=== PATIENT | female | born 1965 | race Caucasian/White ===

== ENCOUNTER 2016-03-26 09:33 | Outpatient (CLI) | payer OTHER | END 2016-03-26 09:34 | disposition home or self-care (01) | LOC: NAVSJIPCSP 09:33 | PROVIDERS: ATTEND Internal Medicine | DX: J30.9 Allergic rhinitis, unspecified (principal); E78.5 Hyperlipidemia, unspecified | CPT/HCPCS: 36415; 80061 ==

== ENCOUNTER 2016-07-15 13:19 | Outpatient (CLI) | payer OTHER ==
[2016-07-15 13:54] LABS: #Eosinphils 0.1 thou/uL (0.0-0.7); #Monocytes 0.4 thou/uL (0.11-0.59); #Neutrophils 1.7 thou/uL (1.40-6.50); %Basophils 1.1 % (0.0-1.0); %Lymphocytes 31.4 % (21.0-51.0); %Monocytes 11.7 % (0.0-10.0); %Neutrophils 51.9 % (42.0-75.0); Hemoglobin 12.3 g/dL (12.0-16.0); Mean Corpuscular HGB CONC 33.5 g/dL (32.0-36.0); Mean Corpuscular Hemoglobin 33.6 pg (27.0-31.0); Mean Platelet Volume 8.9 fL (7.4-10.4); Platelet Count 178 thou/uL (130-400); RBC Distribution Width 12.1 % (11.5-14.5); Red Blood Cell (RBC) Count 3.68 mill/uL (4.20-5.40); White Blood Cell (WBC) Count 3.3 thou/uL (4.8-10.8)
[2016-07-15 14:01] LABS: ALT (SGPT) 20 U/L (0-55); AST (SGOT) 23 U/L (5-34); Albumin 4.1 g/dL (3.5-5.0); Alkaline Phosphatase 57 U/L (40-150); Bilirubin, Direct 0.2 mg/dL (0.1-0.3); Bilirubin, Total 0.4 mg/dL (0.2-1.2); Cholesterol 222 mg/dL (< 200 Desired); HDL Cholesterol 55 mg/dL (>60 Neg Risk); LDL Cholesterol, Calculated 146 mg/dL; Protein, Total 6.3 g/dL (6.0-8.3); Triglycerides 104 mg/dL (Less than 150); Valproic Acid (Depakene) 39.4 ug/mL (50.0-100.0)
== END 2016-07-15 13:20 | disposition home or self-care (01) ==
LOC: NAVSJIPCSP 13:19
PROVIDERS: ATTEND Internal Medicine
DX: E78.5 Hyperlipidemia, unspecified (principal); F31.81 Bipolar II disorder
CPT/HCPCS: 36415; 80061; 80076; 80164; 83036; 84146; 85025

== ENCOUNTER 2016-12-16 13:01 | Outpatient (CLI) | payer OTHER ==
[2016-12-16 14:12] LABS: Cardiac Risk 2.8 (Less than 4.5)
[2016-12-16 20:19] LABS: #Basophils 0.1 thou/uL (0.0-0.2); #Eosinphils 0.3 thou/uL (0.0-0.7); #Lymphocytes 0.9 thou/uL (1.20-3.40); #Monocytes 0.5 thou/uL (0.11-0.59); %Basophils 1.3 % (0.0-1.0); %Eosinophils 4.8 % (0.0-10.0); %Lymphocytes 15.1 % (21.0-51.0); %Monocytes 8.4 % (0.0-10.0); %Neutrophils 70.4 % (42.0-75.0); Hemoglobin 13.4 g/dL (12.0-16.0); Mean Corpuscular HGB CONC 31.9 g/dL (32.0-36.0); Mean Corpuscular Hemoglobin 32.9 pg (27.0-31.0); Mean Platelet Volume 8.3 fL (7.4-10.4); Platelet Count 192 thou/uL (130-400); RBC Distribution Width 11.8 % (11.5-14.5); Red Blood Cell (RBC) Count 4.07 mill/uL (4.20-5.40); White Blood Cell (WBC) Count 5.6 thou/uL (4.8-10.8)
[2016-12-16 20:33] LABS: ALT (SGPT) 24 U/L (8-55); AST (SGOT) 23 U/L (5-34); Albumin 4.6 g/dL (3.5-5.0); Alkaline Phosphatase 66 U/L (40-150); Bilirubin, Direct 0.3 mg/dL (0.1-0.3); Bilirubin, Total 0.7 mg/dL (0.2-1.2); Protein, Total 7.1 g/dL (6.0-8.3)
[2016-12-16 22:28] LABS: Follow-up Chemistry Comp? YES; Follow-up Result - Chemistry REPORT FAXED
[2016-12-17 17:29] LABS: Valproic Acid (Depakene) 49.3 ug/mL (50.0-100.0)
== END 2016-12-16 13:02 | disposition home or self-care (01) ==
LOC: NAVSJIPCSP 13:01
PROVIDERS: ATTEND Internal Medicine
DX: E78.5 Hyperlipidemia, unspecified (principal); Z79.899 Other long term (current) drug therapy
CPT/HCPCS: 80061; 80076; 80164; 85025

== ENCOUNTER 2016-12-17 11:46 | Outpatient (CLI) | payer OTHER | END 2016-12-17 11:47 | disposition home or self-care (01) | LOC: NAVSJIPCSP 11:46 | PROVIDERS: ATTEND Internal Medicine | DX: D75.89 Other specified diseases of blood and blood-forming organs (principal) | CPT/HCPCS: 36415; 82607; 82746 ==

== ENCOUNTER 2017-05-12 11:56 | Outpatient (CLI) | payer OTHER ==
--- NOTE | 2017-05-12 12:53 | RAD ---
CERVICAL SPINE SERIES THREE VIEWS: History: Fell and hit dresser with neck pain and headache. FINDINGS: Vertebral bodies are normal in height. Disc spaces are well preserved. Facets are in normal alignment . There are minimal arthritic facet changes noted. No soft tissue swelling. IMPRESSION: No evidence of fracture. POS: [facility]
--- NOTE | 2017-05-12 13:15 | RAD ---
RIGHT RIBS FOUR VIEWS: History: Fell and hit dresser with right rib pain. FINDINGS: There are no signs of pneumothorax or evidence for fracture. IMPRESSION: No evidence of fracture. POS: C
--- NOTE | 2017-05-12 14:48 | RAD ---
SKULL SERIES: History: 51-year-old female with history of headache and contusion after fall and hitting a dresser on Wednesday. Headache, nausea, vomiting. FINDINGS: No evidence for an overt skull fracture. The sella turcica is unremarkable. The pineal is calcified a nd appears to be within midline position. No evidence for significant abnormal sinus opacification. IMPRESSION: Unremarkable four view skull. However, given history of trauma with headache, nausea and vomiting, a follow up brain CT scan is very strongly recommended to rule out the possibility of intracranial inju ry which would not be evident on plain film skull. POS: [facility]
== END 2017-05-12 11:57 | disposition home or self-care (01) ==
LOC: NAV RAD 11:56
PROVIDERS: ATTEND Internal Medicine
DX: S20.221A Contusion of right back wall of thorax, initial encounter (principal); R51 Headache
CPT/HCPCS: 70260; 72040

== ENCOUNTER 2017-05-19 10:41 | Outpatient (CLI) | payer OTHER ==
--- NOTE | 2017-05-19 12:45 | CT ---
CT OF HEAD NONCONTRAST: INDICATION: Posttraumatic headache. FINDINGS: There is no evidence of ventriculomegaly, mass effect, midline shift, or acute intracranial hemorrhag e. Skull base structures and calvarium are intact without evidence of discrete fracture. No pneumoc ephalus. IMPRESSION: No acute intracranial abnormalities. POS: [facility]
== END 2017-05-19 10:42 | disposition home or self-care (01) ==
LOC: NAV CT 10:41
PROVIDERS: ATTEND Internal Medicine
DX: G44.319 Acute post-traumatic headache, not intractable (principal)
CPT/HCPCS: 70450